=== PATIENT | male | born 1950 | race Caucasian/White ===

== ENCOUNTER 2024-10-25 20:11 | Inpatient (IN) | payer OTHER ==
[~2024-10-25] VITALS: Ht 180.3 cm; Wt 120.7 kg
[2024-10-25] MEDS ORDERED: FUROSEMIDE 40 MG/4 ML VIAL ONE (20:20)
[2024-10-25] MEDS ORDERED: ENALAPRILAT INJ (1.25 MG/ML) 1.25 MG/ML VIAL IV ONE (20:20)
[2024-10-25] MEDS ORDERED: ONDANSETRON HCL/PF 4 MG/2 ML VIAL ONE (20:20)
[2024-10-25] MEDS ORDERED: NTG 50 MG/D5W250 ML BOTTL 250 ML IV ONE (20:22)
[2024-10-25] MEDS: ONDANSETRON HCL/PF - ER 4 MG/2 ML VIAL IV ONE (20:30)
[2024-10-25] MEDS: FUROSEMIDE 40 MG/4 ML VIAL IV ONE (20:30)
[2024-10-25] MEDS: ENALAPRILAT DIHYD. (2.5MG/2ML) 1.25 MG/ML VIAL IV ONE (20:31)
[2024-10-25] MEDS: NTG 50 MG/D5W250 ML BOTTL 250 ML IV ONE (20:37)
[2024-10-25 20:58] LABS: PLATELET COUNT (AUTO) 140 K/uL (150-450); RED BLOOD CELL COUNT(AUTO) 4.72 MIL/uL (4.5-6.0); RED CELL DISTRIBUTION WIDTH 17.8 % (11.5-15.0)
[2024-10-25 21:05] LABS: WHITE BLOOD COUNT (AUTO) 32.0 K/uL (4.3-11.0)
[2024-10-25] MEDS ORDERED: CEFEPIME 1 GM VIAL ONE (21:11)
[2024-10-25] MEDS ORDERED: VANCOMYCIN 1 GM /D5W 250 ML PB IV ONE (21:12)
[2024-10-25 21:13] LABS: LACTIC ACID 3.5 mmol/L (0.4-2.0)
[2024-10-25 21:18] LABS: INR 2.84 (0.91-1.10); LYMPHOCYTES % (MANUAL) 1 % (16-48); MONOCYTES % (MANUAL) 13 % (0-11.0); NEUTROPHILS % (MANUAL) 86 (42-76)
[2024-10-25 21:19] LABS: PLATELET ESTIMATE DECREASED
[2024-10-25] MEDS: CEFEPIME 1 GM in IV D5W 50 ML IV ONE (21:21)
[2024-10-25] MEDS: VANCOMYCIN 1 GM in IV D5W 250 ML IV ONE (21:36)
[2024-10-25 22:05] LABS: ABG BASE EXCESS -3.8 mmol/L (-2.0-3.0); ABG OXYGEN SATURATION 99.3 % (94.0-98.0); ABG PCO2 31.0 mmHg (35.0-48.0); ABG PH 7.422 (7.350-7.450); ABG PO2 354.1 mmHg (83.0-108.0); ABG TOTAL HEMOGLOBIN 11.4 G/dL (13.5-17.5); SET RATE, BG 16.0; SITE, ABG RIGHT RADIAL
[2024-10-25 22:18] LABS: ASPARTATE AMINOTRANSFERASE 18 U/L (15-37); CALCIUM, SERUM 9.2 mg/dL (8.5-10.1); CREATININE 2.7 mg/dL (0.6-1.3); NT-PRO BNP 592 pg/mL (0-125); SODIUM SERUM 139 mmol/L (136-145); TOTAL PROTEIN, SERUM 7.4 g/dL (6.4-8.2); UREA NITROGEN, BLOOD 64 mg/dL (7-18)
[2024-10-25] MEDS ORDERED: DOSING PER PHARMACY-VANCOMYCIN IV XX PRN (22:30)
[2024-10-25] MEDS ORDERED: IPRATROPIUM NEB FS 0.5 MG/2.5 ML AMPUL.NEB NEB PRN (22:30)
[2024-10-25] MEDS ORDERED: ONDANSETRON HCL/PF 4 MG/2 ML VIAL IVP PRN (22:30)
[2024-10-25] MEDS ORDERED: ACETAMINOPHEN 325 MG TABLET PO PRN (22:30)
[2024-10-25] MEDS ORDERED: DOSING PER PHARMACY-CEFEPIME IVPB XX PRN (22:30)
[2024-10-25] MEDS ORDERED: ALBUTEROL FS 2.5 MG/3 ML VIAL.NEB NEB PRN (22:30)
[2024-10-25] MEDS ORDERED: ACETAMINOPHEN 650 MG/SUPP.RECT RC PRN (22:30)
[2024-10-25] MEDS ORDERED: INSU100V7 SQ (23:07)
[2024-10-25] MEDS ORDERED: PREG50CA PO (23:07)
[2024-10-25] MEDS ORDERED: FURO40TA5 PO (23:07)
[2024-10-25] MEDS ORDERED: TERA5CAP4 PO (23:07)
[2024-10-25] MEDS ORDERED: CHOL500052 PO (23:07)
[2024-10-25] MEDS ORDERED: MYCO250C PO (23:07)
[2024-10-25] MEDS ORDERED: LOSA25TA27 PO (23:07)
[2024-10-25] MEDS ORDERED: DICL100G34 TP (23:07)
[2024-10-25] MEDS ORDERED: PSYL822P6 PO (23:07)
[2024-10-25] MEDS ORDERED: OXYC-128 PO (23:07)
[2024-10-25] MEDS ORDERED: CYCL25CA6 PO (23:07)
[2024-10-25] MEDS ORDERED: DILT180C49 PO (23:07)
[2024-10-25] MEDS ORDERED: DABI150C PO (23:07)
[2024-10-25] MEDS ORDERED: HYDR28.32 TP (23:07)
[2024-10-25] MEDS ORDERED: ACET500C48 PO (23:07)
[2024-10-25] MEDS ORDERED: PRED5TAB48 PO (23:07)
[2024-10-25] MEDS ORDERED: HYDR100T27 PO (23:07)
[2024-10-25] MEDS ORDERED: SODI650T PO (23:07)
[2024-10-25] MEDS ORDERED: GABA300C PO (23:07)
[2024-10-25] MEDS ORDERED: ALLO100T PO (23:07)
[2024-10-25] MEDS ORDERED: INSU100I28 SQ (23:07)
[2024-10-26] VITALS (41 sets, daily range): BP systolic 104–173; BP diastolic 40–61; TEMP 98.1–99.8; O2SAT 92–100
[2024-10-26] MEDS: VANCOMYCIN 1 GM in IV D5W 250ml IV ONE (00:37)
[2024-10-26] MEDS: VANCOMYCIN 1 GM /D5W 250 ML PB IV ONE (00:54)
[2024-10-26] MEDS: HEPARIN SODIUM, PORCINE 5000 UNITS/1 ML VIAL SQ SCH (00:59)
[2024-10-26] MEDS: NTG 50 MG/D5W250 ML BOTTL 250 ML IV PRN (01:14)
[2024-10-26] MEDS: IV NS 0.9% 250 ML IV PRN (03:19)
[2024-10-26 04:23] LABS: PLATELET COUNT (AUTO) 112 K/uL (150-450); RED BLOOD CELL COUNT(AUTO) 3.48 MIL/uL (4.5-6.0); RED CELL DISTRIBUTION WIDTH 17.9 % (11.5-15.0)
[2024-10-26 04:39] LABS: LDL 43.0 mg/dL (0-99)
[2024-10-26 04:40] LABS: LACTIC ACID 1.8 mmol/L (0.4-2.0)
[2024-10-26 04:45] LABS: ASPARTATE AMINOTRANSFERASE 15.0 U/L (15-37); CALCIUM, SERUM 8.2 mg/dL (8.5-10.1); CREATININE 3.3 mg/dL (0.6-1.3); NT-PRO BNP 973.0 pg/mL (0-125); PHOSPHORUS 3.4 mg/dL (2.5-4.9); SODIUM SERUM 127.0 mmol/L (136-145); TOTAL PROTEIN, SERUM 6.0 g/dL (6.4-8.2); UREA NITROGEN, BLOOD 63.0 mg/dL (7-18)
[2024-10-26 04:47] LABS: WHITE BLOOD COUNT (AUTO) 36.2 K/uL (4.3-11.0)
[2024-10-26] MEDS ORDERED: DEXTROSE 50%-WATER 50 ML DISP.SYRIN IV PRN (05:30)
[2024-10-26] MEDS: INSULIN REGULAR, HUMAN 100 UNIT/ML 3 ML VIAL SQ PRN (05:30)
[2024-10-26 05:44] LABS: ABG BASE EXCESS -2.8 mmol/L (-2.0-3.0); ABG OXYGEN SATURATION 92.8 % (94.0-98.0); ABG PCO2 31.9 mmHg (35.0-48.0); ABG PH 7.432 (7.350-7.450); ABG PO2 67.0 mmHg (83.0-108.0); ABG TOTAL HEMOGLOBIN 9.9 G/dL (13.5-17.5); FLOW, BLOOD GAS 5.00 L/min (0.00-30.00); SITE, ABG LEFT RADIAL
[2024-10-26 06:25] LABS: EOSINOPHILS % (MANUAL) 0 % (0-4); LYMPHOCYTES % (MANUAL) 6 % (16-48); MONOCYTES % (MANUAL) 12 % (0-11.0); NEUTROPHILS % (MANUAL) 82 (42-76); PLATELET ESTIMATE DECREASED
[2024-10-26] MEDS: BLOOD SUGAR DIAGNOSTIC 1 EACH STRIP IN SCH ×2 (07:15→11:56)
[2024-10-26] MEDS: PANTOPRAZOLE 40 MG VIAL IV SCH ×2 (08:19→21:03)
[2024-10-26] MEDS: CEFEPIME 1 GM in IV D5W 50 ML IV SCH (08:20)
[2024-10-26] MEDS: THERAHONEY GEL 1.5 OZ TUBE TP SCH (08:22)
[2024-10-26] MEDS ORDERED: CHOL100043 PO (10:04)
[2024-10-26] MEDS ORDERED: DABI110C PO (10:04)
[2024-10-26] MEDS ORDERED: ACET-73 PO (10:04)
[2024-10-26] MEDS ORDERED: METH1ADH11 TP (10:04)
[2024-10-26] MEDS ORDERED: PRED5TAB PO (10:04)
[2024-10-26] MEDS ORDERED: MULT-594 PO (10:04)
[2024-10-26] MEDS ORDERED: MENT8OIN TP (10:04)
[2024-10-26] MEDS ORDERED: Hydrocortisone TP (10:04)
[2024-10-26] MEDS: SODIUM ZIRCONIUM CYCLOSILICATE 10 GM POWD.PACK PO SCH (10:30)
[2024-10-26] MEDS: FUROSEMIDE 40 MG/4 ML VIAL IV SCH (11:55)
[2024-10-26] MEDS: AZITHROMYCIN 500 MG in IV D5W 250 ML IV SCH (11:55)
[2024-10-26 11:56] LABS: CALCIUM, SERUM 8.7 mg/dL (8.5-10.1); CREATININE 4.3 mg/dL (0.6-1.3); SODIUM SERUM 136.0 mmol/L (136-145); UREA NITROGEN, BLOOD 73.0 mg/dL (7-18)
[2024-10-26] MEDS: INSULIN GLARGINE, 100 UNIT/ML CARTRIDGE SQ SCH (12:13)
[2024-10-26] MEDS: IPRATROPIUM NEB FS 0.5 MG/2.5 ML AMPUL.NEB NEB SCH (15:21)
[2024-10-26] MEDS: LEVALBUTEROL HCL NEB 1.25 MG/0.5 ML VIAL.NEB NEB SCH (15:22)
[2024-10-26] MEDS: ACETYLCYSTEINE 20% SOLN 800 MG/4 ML VIAL NEB SCH (15:22)
[2024-10-26 16:31] LABS: CALCIUM, SERUM 8.3 mg/dL (8.5-10.1); CREATININE 4.0 mg/dL (0.6-1.3); SODIUM SERUM 136.0 mmol/L (136-145); UREA NITROGEN, BLOOD 74.0 mg/dL (7-18)
[2024-10-26] MEDS: MYCOPHENOLATE MOFETIL 250 MG CAPSULE PO SCH (17:15)
[2024-10-26] MEDS: DABIGATRAN ETEXILATE MESYLATE 75 MG CAPSULE PO SCH (17:18)
[2024-10-26] MEDS: SODIUM BICARBONATE 650 MG TABLET PO SCH (17:45)
[2024-10-26 18:32] LABS: APPEARANCE,URINE CLEAR (CLEAR); BLOOD, URINE NEGATIVE Ery/uL (NEGATIVE); LEUKOCYTE ESTERASE ,URINE NEGATIVE (NEGATIVE); NITRITE, URINE NEGATIVE (NEGATIVE); UGLUCOSE NEGATIVE (NEGATIVE)
[2024-10-26 19:59] LABS: EOSINOPHIL,URINE None Seen
[2024-10-26] MEDS: DOXYCYCLINE 100 MG in IV D5W 100 ML IV SCH (21:04)
[2024-10-26] MEDS: TERAZOSIN HCL 5 MG CAPSULE PO SCH (23:47)
[2024-10-26] MEDS: GABAPENTIN 300 MG CAPSULE PO SCH (23:47)
[2024-10-27] VITALS (21 sets, daily range): BP systolic 120–167; BP diastolic 37–76; TEMP 97–99.6; O2SAT 89–100
[2024-10-27 04:38] LABS: PLATELET COUNT (AUTO) 97 K/uL (150-450); RED BLOOD CELL COUNT(AUTO) 3.47 MIL/uL (4.5-6.0); RED CELL DISTRIBUTION WIDTH 17.6 % (11.5-15.0); WHITE BLOOD COUNT (AUTO) 18.7 K/uL (4.3-11.0)
[2024-10-27 04:56] LABS: CREATINE KINASE, TOTAL 42.0 U/L (39-308)
[2024-10-27 05:06] LABS: ASPARTATE AMINOTRANSFERASE 14.0 U/L (15-37); CALCIUM, SERUM 8.7 mg/dL (8.5-10.1); CREATININE 3.6 mg/dL (0.6-1.3); PHOSPHORUS 4.6 mg/dL (2.5-4.9); SODIUM SERUM 136.0 mmol/L (136-145); TOTAL PROTEIN, SERUM 6.1 g/dL (6.4-8.2); UREA NITROGEN, BLOOD 74.0 mg/dL (7-18)
[2024-10-27 05:38] LABS: LYMPHOCYTES % (MANUAL) 5 % (16-48); MONOCYTES % (MANUAL) 7 % (0-11.0); NEUTROPHILS % (MANUAL) 88 (42-76)
[2024-10-27 05:39] LABS: PLATELET ESTIMATE DECREASED
[2024-10-27] MEDS ORDERED: LOSARTAN POTASSIUM 25 MG TABLET PO SCH (09:00)
[2024-10-27] MEDS: DILTIAZEM HCL CD 180 MG PO SCH (09:11)
[2024-10-27] MEDS: PREGABALIN 25 MG CAPSULE PO SCH (09:12)
[2024-10-27] MEDS: ALLOPURINOL 100 MG TABLET PO SCH (09:13)
[2024-10-27] MEDS ORDERED: VANCOMYCIN 1 GM in IV D5W 250ml IV SCH (12:00)
[2024-10-27] MEDS ORDERED: FUROSEMIDE 40 MG/4 ML VIAL IV SCH (17:00)
[2024-10-28 11:06] LABS: PTH, INTACT 80 pg/mL (15-65)
== END 2024-10-27 16:58 | disposition short-term general hospital (02) | DRG 177 ==
LOC: ER 20:13 → ICU 22:00
PROVIDERS: ADMIT Nurse Practitioner Family; ATTEND Internal Medicine
PROC: 5A09357 Assistance with Respiratory Ventilation, Less than 24 Consecutive Hours, Continuous Positive Airway Pressure (ICD-10-PCS; principal; 2024-10-25)
DX: J15.69 Pneumonia due to other Gram-negative bacteria (principal); I50.43 Acute on chronic combined systolic (congestive) and diastolic (congestive) heart failure; L89.323 Pressure ulcer of left buttock, stage 3; J96.01 Acute respiratory failure with hypoxia; N17.0 Acute kidney failure with tubular necrosis; N18.6 End stage renal disease; J44.0 Chronic obstructive pulmonary disease with (acute) lower respiratory infection; E87.20 Acidosis, unspecified; Z94.0 Kidney transplant status; N17.9 Acute kidney failure, unspecified; D84.821 Immunodeficiency due to drugs; E87.1 Hypo-osmolality and hyponatremia; I16.0 Hypertensive urgency; I11.0 Hypertensive heart disease with heart failure; E11.22 Type 2 diabetes mellitus with diabetic chronic kidney disease; I48.91 Unspecified atrial fibrillation; Z79.4 Long term (current) use of insulin; Z79.899 Other long term (current) drug therapy; E78.5 Hyperlipidemia, unspecified; G47.33 Obstructive sleep apnea (adult) (pediatric); Z09 Encounter for follow-up examination after completed treatment for conditions other than malignant neoplasm; E80.6 Other disorders of bilirubin metabolism; Z68.36 Body mass index [BMI] 36.0-36.9, adult; D64.9 Anemia, unspecified; E11.65 Type 2 diabetes mellitus with hyperglycemia; E66.01 Morbid (severe) obesity due to excess calories; E87.5 Hyperkalemia; Z79.60 Long term (current) use of unspecified immunomodulators and immunosuppressants; Z79.01 Long term (current) use of anticoagulants; Z98.890 Other specified postprocedural states
CPT/HCPCS: 31720; 36415; 36600; 71045-TC; 71250-TC; 76770-TC; 80048-TC; 80053-TC; 80061-TC; 80076-TC; 80158; 82550-TC; 82803-TC; 82962-TC; 83605-TC; 83735-TC; 83880; 83970; 84100-TC; 84155; 84165; 84484-TC; 85027-TC; 85730-TC; 87040-TC; 87081-TC; 87086-TC; 93307-TC; 94799-TC; 99082-TC; A4223; G0378; J0456; J0692; J1644; J1815; J1938; J2405; J2470; J3373; J3490; J7050; J7060; J7512; J7515; J7517